=== PATIENT | female | born 1945 | race Caucasian/White ===

== ENCOUNTER 2016-08-14 12:26 | Emergency (ER) | payer OTHER ==
[2016-08-14 12:43] VITALS: BP 185/89
--- NOTE | 2016-08-14 13:33 | UC ---
kelsea Eden Timothy, scribed for Eleanor Jacome MD on 08/14/16 at 1313 . Dizzy HPI HPI Summary: Ms. Chanelle Nguyen is a 71 yo female presenting to [facility] with increased blood pressure and dizziness/nausea since this morning. Pt states she has a Hx of vertigo that she has been treating over the last 2 weeks. Pt states symptoms had improved. This morning she went to the gym and participated in her usual exercise regimen without difficulty. PT sates approx 10-1030 she had began to feel dizzy and nauseous. Pt states she felt like herBP was high - she measured it at BP of 185/105. Pt states she took all her medications for BP but her symptoms as well as her elevated BP continued. Pt states she has difficulty focusing, slight photophobia, and is unable to turn head to left as it increases her dizziness and nausea. Pt denies SOTO. PT states with ambulation feels like her balance is off - unsure if falling to left or right. Pt denies h /o similar symptoms. She states she has been compliant with her BP medication and has not missed any doses. In room she is lying down covering her eyes due to dizziness intensified by lights. She notes some issues with vertigo in the past 4 days but states this feels different and more intense. No cp, sob, abd pain. Her MHx includes Afib, HLD, HTN, vertigo, GERD. Pt medication list reviewed this visit. - History Of Current Complaint Chief Complaint: UCDizziness Stated Complaint: BP UP DIZZY Time Seen by Provider: 08/14/16 13:08 Hx Obtained From: Patient Onset/Duration: Sudden Onset, Lasting Hours, Still Present Timing: Constant Severity Initially: Moderate Severity Currently: Moderate Pain Intensity: 0 Character: Head Spinning, Room Spinning, Lightheaded, Dizzy Aggravating Factor(s): Position Change, Change In Head Position Alleviating Factor(s): Lying Down, Closing Eyes Associated Signs And Symptoms: Positive: Nausea. Negative: Diaphoresis, Chest Pain, Palpitations - Allergies/Home Medications Allergies/Adverse Reactions: Allergies Allergy/AdvReac Type Severity Reaction Status Date / Time Epinephrine Allergy Severe Palpitation Verified 08/25/13 11:19 s Diphenhydramine Allergy Difficulty Verified 08/25/13 11:19 [From Benadryl] Breathing Gadoteridol [From ProHance] Allergy Hives and Verified 08/25/13 11:19 itching Home Medications: Home Medications Apixaban* [Eliquis*] 5 mg PO 08/14/16 [History] Atenolol TAB* [Tenormin TAB* 25 MG] 25 mg PO DAILY 08/14/16 [History Confirmed 08/14/16] Flecainide TAB(NF) 50 mg PO 08/14/16 [History] Lisinopril [Lisinopril 2.5 MG-] 2.5 mg PO DAILY 08/14/16 [History Confirmed 05/28] PMH/Surg Hx/FS Hx/Imm Hx Previously Healthy: Yes Cardiovascular History: Hypertension, Atrial Fibrillation, Other Other Cardiovascular History: HLD GI/ History: Gastroesophageal Reflux - Surgical History Surgical History: Yes Surgery Procedure, Year, and Place: hysterectomy,Foreign object removed from throattonsilectomy - Family History Known Family History: Positive: Cardiac Disease, Hypertension, Other - [place] Negative: Diabetes - Social History Occupation: Retired Alcohol Use: None Substance Use Type: None Smoking Status (MU): Never Smoked Tobacco Review of Systems Constitutional: Negative Skin: Negative Eyes: Photophobia ENT: Negative Respiratory: Negative Cardiovascular: Other - High BP Gastrointestinal: Nausea Genitourinary: Negative Motor: Weakness Neurovascular: Negative Musculoskeletal: Negative Neurological: Weakness, Other - dizziness Psychological: Negative All Other Systems Reviewed And Are Negative: Yes Physical Exam Triage Information Reviewed: Yes Appearance: Well-Appearing, No Pain Distress - Pt appears uncomfortable, eyes close, Well-Nourished Vital Signs: Initial Vital Signs Temp 99.0 F 08/14/16 12:39 Pulse 57 08/14/16 12:39 Resp 18 08/14/16 12:39 BP 185/89 08/14/16 12:39 Pulse Ox 100 08/14/16 12:39 Vital Signs Reviewed: Yes Eye Exam: Normal Eyes: Positive: Other: - + photophobia - mild + left sided nystagmus ENT Exam: Normal ENT: Positive: Hearing grossly normal Dental Exam: Normal Neck exam: Normal Neck: Positive: Supple, Nontender Respiratory Exam: Normal Respiratory: Positive: Chest non-tender, Lungs clear Cardiovascular Exam: Normal Cardiovascular: Positive: RRR, No Murmur Musculoskeletal Exam: Normal Musculoskeletal: Positive: Strength Intact Neurological: Positive: Alert, Other: - left sided nystagmus Psychological Exam: Normal Skin Exam: Normal Diagnostics - EKG Cardiac Rate: Bradycardia - 1229: NSR @ 57 BPM, no acute ST-T wave changes. Dizzy Course/Dx - Course Course Of Treatment: Chanelle Nguyen is a 71 yo female presenting to [facility] with high blood pressure, dizziness, and nausea since 1000 this morning after going to the gym. Pt took her BP medications without improvement of BP or improvement of sx. advised pt to go to the to [facility] for further evaluation, observation, and treatment. She is agreeable to transfer to [facility] by ambulance. Saline lock. BG check - Differential Dx/Diagnosis Differential Diagnosis/HQI/PQRI: CVA Provider Diagnoses: hypertensive urgency, dizziness, nausea - Physician Notifications Discussed Patient Care With: Pooja Woodson - Discussed PT condition, accepts PT for transfer to [facility] Time Discussed With Above Provider: 13:19 Instructed by Provider To: Transfer Discharge - Discharge Plan Condition: Stable Disposition: TRANS [facility] Discharge Disposition Comment: transfer to [facility] for further evaluation, observation, and treatment Referrals: No Primary Care Phys,NOPCP [Primary Care Provider] - The documentation as recorded by the kelsea prado Timothy accurately reflects the service I personally performed and the decisions made by me, Eleanor Jacome MD.
== END 2016-08-14 13:45 | disposition short-term general hospital (02) ==
LOC: UCEAST 12:26
DX: I16.0 Hypertensive urgency (principal); I10 Essential (primary) hypertension; R42 Dizziness and giddiness; R11.0 Nausea
CPT/HCPCS: 93005; 99213; G0463

== ENCOUNTER 2016-08-14 13:57 | Emergency (ER) | payer OTHER ==
[2016-08-14 14:58] LABS: Hematocrit 41 % (35-47); Hemoglobin 13.5 g/dl (12.0-16.0); Mean Corpuscular HGB Conc 33 g/dl (31-36); Mean Corpuscular Hemoglobin 32 pg (27-31); Mean Corpuscular Volume 96 fL (80-97); Mean Platelet Volume 9 um3 (7.4-10.4); Red Blood Count 4.26 10^6/ul (4.0-5.4); Red Cell Distribution Width 14 % (10.5-15); White Blood Count 6.4 10^3/ul (3.5-10.8)
[2016-08-14 15:10] LABS: ALT 18 U/L (7-52); AST 19 U/L (13-39); Albumin 4.2 g/dL (3.2-5.2); Alkaline Phosphatase 77 U/L (34-104); Anion Gap 7 mmol/L (2-11); BUN/Creatinine Ratio 18.1 (8-20); Blood Urea Nitrogen 15 mg/dL (6-24); C Reactive Protein < 1.00 mg/L (< 5.00); CO2 Carbon Dioxide 26 mmol/L (22-32); Calcium 9.5 mg/dL (8.6-10.3); Chloride 107 mmol/L (101-111); Creatine Kinase 55 U/L (10-223); EGFR African American 86.9 (>60); EGFR Non-African American 67.6 (>60); Globulin 2.6 g/dL (2-4); Glucose 95 mg/dL (70-100); Lipase 102 U/L (11.0-82.0); Magnesium 2.3 mg/dL (1.9-2.7); Potassium 3.7 mmol/L (3.5-5.0); Sodium 140 mmol/L (133-145); Total Protein 6.8 g/dL (6.4-8.9)
[2016-08-14 15:15] LABS: Urine Bacteria Absent (Absent); Urine Bilirubin Negative (Negative); Urine Glucose Negative (Negative); Urine Nitrite Negative (Negative)
[2016-08-14 15:19] LABS: TSH (Thyroid Stimulating Horm) 2.39 mcIU/mL (0.34-5.60)
[2016-08-14 16:18] VITALS: BP 153/76
--- NOTE | 2016-08-14 17:45 | ED ---
Lorenzo Eden Rebecca, scribed for Josef Cruz MD on 08/14/16 at 1426 . Hypertension - HPI Summary HPI Summary: Pt is a 71 y/o F BIBA from [facility] who presents to ED c/o nausea and lightheadedness secondary to elevated BP. Sx began at 1000 this morning and have been constant since onset. Sx aggravated and alleviated by nothing, unchanged by typical blood pressure medication, administered at 1000 this morning. Denies abd pain, CP, SOB, SOTO, weakness, slurred speech, facial droop, visual changes. Pt reports checking her BP at home due to the onset of sx. Current sx are similar to prior episodes of HTN exacerbation, though her BP typically does not elevate as high as it currently is, peaking around 160 systolic. PMHx HTN and vertigo for the past month with dizziness characterized as room spinning. Current medications are: Lisinopril (2.5 mg), Atenolol (12.5 mg), Flecainide (50 mg BID), Eliquis (5 mg BID). Pt refuses CXR. - History of Current Complaint Chief Complaint: EDHypertension Stated Complaint: HIGH BLOOD PRESSURE,NAUSEA/FROM CC Time Seen by Provider: 08/14/16 14:17 Hx Obtained From: Patient Onset/Duration: Started Hours Ago, Still Present Timing: Constant Aggravating Factor(s): Nothing Alleviating Factor(s): Nothing Associated Signs & Symptoms: Other: - Nausea, lightheadedness Related Hx: Similar Episode - Prior episodes of elevated BP - Allergies/Home Medications Allergies/Adverse Reactions: Allergies Allergy/AdvReac Type Severity Reaction Status Date / Time Epinephrine Allergy Severe Palpitation Verified 08/25/13 11:19 s Diphenhydramine Allergy Difficulty Verified 08/25/13 11:19 [From Benadryl] Breathing Gadoteridol [From ProHance] Allergy Hives and Verified 08/25/13 11:19 itching PMH/Surg Hx/FS Hx/Imm Hx Endocrine/Hematology History: Denies: Hx Diabetes Cardiovascular History: Reports: Hx Hypercholesterolemia, Hx Hypertension Denies: Hx Pacemaker/ICD GI History: Reports: Other GI Disorders - see hx History: Denies: Hx Dialysis, Hx Renal Disease Sensory History: Denies: Hx Hearing Aid Neurological History: Reports: Other Neuro Impairments/Disorders - Hx vertigo Psychiatric History: Denies: Hx Panic Disorder - Cancer History Hx Chemotherapy: No Hx Radiation Therapy: No - Surgical History Surgery Procedure, Year, and Place: hysterectomy,Foreign object removed from throat, tonsilectomy Infectious Disease History: Denies: Hx Clostridium Difficile, Hx Hepatitis, Hx Human Immunodeficiency Virus (HIV), Hx Shingles, Hx Tuberculosis, Hx Known/Suspected VRE, Hx Known/ Suspected VRSA, History Other Infectious Disease, Traveled Outside the [place] in Last 30 Days - Family History Known Family History: Positive: Cardiac Disease, Hypertension, Other - CA Negative: Diabetes - Social History Alcohol Use: None Substance Use Type: Reports: None Hx Tobacco Use: No Smoking Status (MU): Never Smoked Tobacco Review of Systems Positive: Other - elevated BP Positive: Other - Denies visual changes Negative: Chest Pain Negative: Shortness Of Breath Positive: Nausea. Negative: Abdominal Pain Neurological: Other - Lightheadedness; Denies facial droop Negative: Headache, Weakness, Slurred Speech All Other Systems Reviewed And Are Negative: Yes Physical Exam - Summary Physical Exam Summary: General: well-appearing, no pain distress Skin: warm, skin color reflects adequate perfusion, dry Head: normal Eyes: EOMI, ERICA ENT: normal Neck: supple, nontender Respiratory: CTA, breath sounds present Cardiovascular: RRR Abdomen: soft, nontender Bowel: present Musculoskeletal: normal, strength/ROM intact Neuro: normal, sensory/motor intact, A&O x3 Psych: affect/mood appropriate Triage Information Reviewed: Yes Vital Signs On Initial Exam: Initial Vitals Temp Pulse Resp BP Pulse Ox 98.6 F 55 17 186/102 100 08/14/16 14:16 08/14/16 14:16 08/14/16 14:16 08/14/16 14:16 08/14/16 14:16 Vital Signs Reviewed: Yes Diagnostics - Vital Signs Vital Signs Temp Pulse Resp BP Pulse Ox 08/14/16 16:18 99.4 F 49 15 153/76 08/14/16 16:00 48 14 153/76 97 08/14/16 15:30 51 12 152/83 99 08/14/16 15:00 53 11 162/81 99 08/14/16 14:30 57 13 179/96 100 08/14/16 14:25 56 17 192/83 100 08/14/16 14:20 55 100 08/14/16 14:18 186/102 08/14/16 14:16 98.6 F 55 17 186/102 100 - Laboratory Lab Results: Lab Results 08/14/16 08/14/16 08/14/16 Range/Units 13:28 13:28 13:28 WBC 6.4 (3.5-10.8) 10^3/ul RBC 4.26 (4.0-5.4) 10^6/ul Hgb 13.5 (12.0-16.0) g/dl Hct 41 (35-47) % MCV 96 (80-97) fL MCH 32 H (27-31) pg MCHC 33 (31-36) g/dl RDW 14 (10.5-15) % Plt Count 195 (150-450) 10^3/ul MPV 9 (7.4-10.4) um3 Neut % (Auto) 70.3 (38-83) % Lymph % (Auto) 22.1 L (25-47) % [place] % (Auto) 5.4 (1-9) % Eos % (Auto) 1.7 (0-6) % Baso % (Auto) 0.5 (0-2) % Absolute Neuts (auto) 4.5 (1.5-7.7) 10^3/ul Absolute Lymphs (auto) 1.4 (1.0-4.8) 10^3/ul Absolute Monos (auto) 0.3 (0-0.8) 10^3/ul Absolute Eos (auto) 0.1 (0-0.6) 10^3/ul Absolute Basos (auto) 0 (0-0.2) 10^3/ul Absolute Nucleated RBC 0.01 10^3/ul Nucleated RBC % 0.1 INR (Anticoag Therapy) 1.34 H (0.89-1.11) APTT 34.7 (26.0-36.3) seconds Sodium 140 (133-145) mmol/L Potassium 3.7 (3.5-5.0) mmol/L Chloride 107 (101-111) mmol/L Carbon Dioxide 26 (22-32) mmol/L Anion Gap 7 (2-11) mmol/L BUN 15 (6-24) mg/dL Creatinine 0.83 (0.51-0.95) mg/dL Est GFR ( Amer) 86.9 (>60) Est GFR (Non-Af Amer) 67.6 (>60) BUN/Creatinine Ratio 18.1 (8-20) Glucose 95 (70-100) mg/dL Calcium 9.5 (8.6-10.3) mg/dL Magnesium 2.3 (1.9-2.7) mg/dL Total Bilirubin 0.70 (0.2-1.0) mg/dL AST 19 (13-39) U/L ALT 18 (7-52) U/L Alkaline Phosphatase 77 (34-104) U/L Total Creatine Kinase 55 (10-223) U/L CK-MB (CK-2) 2.3 (0.6-6.3) ng/mL Troponin I 0.00 (<0.04) ng/mL C-Reactive Protein < 1.00 (< 5.00) mg/L B-Natriuretic Peptide ( - 100) pg/mL Total Protein 6.8 (6.4-8.9) g/dL Albumin 4.2 (3.2-5.2) g/dL Globulin 2.6 (2-4) g/dL Albumin/Globulin Ratio 1.6 (1-3) Lipase 102 H (11.0-82.0) U/L TSH 2.39 (0.34-5.60) mcIU/mL Urine Color Urine Appearance Urine pH (5-9) Ur Specific Basin (1.010-1.030) Urine Protein (Negative) Urine Ketones (Negative) Urine Blood (Negative) Urine Nitrate (Negative) Urine Bilirubin (Negative) Urine Urobilinogen (Negative) Ur Leukocyte Esterase (Negative) Urine WBC (Auto) (Absent) Urine RBC (Auto) (Absent) Ur Squamous Epith Cells (Absent) Urine Bacteria (Absent) Urine Glucose (Negative) 08/14/16 08/14/16 Range/Units 13:28 14:51 WBC (3.5-10.8) 10^3/ul RBC (4.0-5.4) 10^6/ul Hgb (12.0-16.0) g/dl Hct (35-47) % MCV (80-97) fL MCH (27-31) pg MCHC (31-36) g/dl RDW (10.5-15) % Plt Count (150-450) 10^3/ul MPV (7.4-10.4) um3 Neut % (Auto) (38-83) % Lymph % (Auto) (25-47) % V[place] % (Auto) (1-9) % Eos % (Auto) (0-6) % Baso % (Auto) (0-2) % Absolute Neuts (auto) (1.5-7.7) 10^3/ul Absolute Lymphs (auto) (1.0-4.8) 10^3/ul Absolute Monos (auto) (0-0.8) 10^3/ul Absolute Eos (auto) (0-0.6) 10^3/ul Absolute Basos (auto) (0-0.2) 10^3/ul Absolute Nucleated RBC 10^3/ul Nucleated RBC % INR (Anticoag Therapy) (0.89-1.11) APTT (26.0-36.3) seconds Sodium (133-145) mmol/L Potassium (3.5-5.0) mmol/L Chloride (101-111) mmol/L Carbon Dioxide (22-32) mmol/L Anion Gap (2-11) mmol/L BUN (6-24) mg/dL Creatinine (0.51-0.95) mg/dL Est GFR ( Amer) (>60) Est GFR (Non-Af Amer) (>60) BUN/Creatinine Ratio (8-20) Glucose (70-100) mg/dL Calcium (8.6-10.3) mg/dL Magnesium (1.9-2.7) mg/dL Total Bilirubin (0.2-1.0) mg/dL AST (13-39) U/L ALT (7-52) U/L Alkaline Phosphatase (34-104) U/L Total Creatine Kinase (10-223) U/L CK-MB (CK-2) (0.6-6.3) ng/mL Troponin I (<0.04) ng/mL C-Reactive Protein (< 5.00) mg/L B-Natriuretic Peptide 106 H ( - 100) pg/mL Total Protein (6.4-8.9) g/dL Albumin (3.2-5.2) g/dL Globulin (2-4) g/dL Albumin/Globulin Ratio (1-3) Lipase (11.0-82.0) U/L TSH (0.34-5.60) mcIU/mL Urine Color Colorless Urine Appearance Clear Urine pH 8.0 (5-9) Ur Specific Basin 1.005 L (1.010-1.030) Urine Protein Negative (Negative) Urine Ketones Negative (Negative) Urine Blood 1+ H (Negative) Urine Nitrate Negative (Negative) Urine Bilirubin Negative (Negative) Urine Urobilinogen Negative (Negative) Ur Leukocyte Esterase Negative (Negative) Urine WBC (Auto) Absent (Absent) Urine RBC (Auto) 1+(3-5/hpf) H (Absent) Ur Squamous Epith Cells Present H (Absent) Urine Bacteria Absent (Absent) Urine Glucose Negative (Negative) Result Diagrams: 08/14/16 13:28 08/14/16 13:28 Lab Statement: Any lab studies that have been ordered have been reviewed, and results considered in the medical decision making process. - EKG 1536 Cardiac Rate: Bradycardia - 48 bpm EKG Rhythm: Sinus Bradycardia ST Segment: Normal Ectopy: None Re-Evaluation - Re-Evaluation First Eval Re-Evaluation Time: 16:04 Change: Unchanged Comment: Discussed lab and EKG results with pt. BP has gone down and she is feeling better. Hypertension Course/Dx - Course Course Of Treatment: NO CRITICAL CARE TIME. WELL IN ED. BP NORMALIZED IN ED. RESULTS DISCUSSED WITH PATIENT/FAMILY. DISCHARGE HOME STABLE. - Diagnoses Provider Diagnoses: Hypertension Discharge - Discharge Plan Condition: Stable Disposition: HOME Patient Education Materials: Hypertension (ED) Referrals: Chava Linton MD [Primary Care Provider] - Additional Instructions: FOLLOW UP WITH YOUR DOCTOR. RETURN TO THE EMERGENCY DEPARTMENT FOR ANY WORSENING OF YOUR CONDITION OR QUESTIONS OR CONCERNS. The documentation as recorded by the Lorenzo prado Rebecca accurately reflects the service I personally performed and the decisions made by me, Josef Cruz MD.
== END 2016-08-14 16:19 | disposition home or self-care (01) ==
LOC: ED 13:57
DX: I10 Essential (primary) hypertension (principal); R11.0 Nausea; R42 Dizziness and giddiness
CPT/HCPCS: 36415; 80053; 81003; 81015; 82550; 82553; 83690; 83735; 83880; 84443; 84484; 85025; 85610; 85730; 86140; 93005; 99283

== ENCOUNTER 2017-08-15 16:38 | Emergency (ER) | payer OTHER ==
[2017-08-15 16:54] VITALS: BP 151/83
--- NOTE | 2017-08-15 17:16 | UC ---
Lorenzo Eden Rebecca, scribed for Eleanor Jacome MD on 08/15/17 at 1711 . Skin Complaint HPI - HPI Summary HPI Summary: Pt is a 72 y/o F who presents to [facility] due to a suspected tick bite. 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 When her looked at it, he suspected there may be a tick present. 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 pt without any complaints. 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 ARTIST, Still Present Current Severity: None Pain Intensity: 0 Pain Scale Used: 0-10 Numeric Location: Other - Back Character: Pruritus Aggravating Factor(s): Nothing Alleviating Factor(s): Nothing Associated Signs & Symptoms: Positive: Negative - Allergy/Home Medications Allergies/Adverse Reactions: Allergies Allergy/AdvReac Type Severity Reaction Status Date / Time diphenhydramine Allergy Difficulty Verified 08/15/17 17:07 Breathing epinephrine Allergy Palpitation Verified 08/15/17 17:07 s gadoteridol Allergy Difficulty Verified 08/15/17 17:07 Breathing Review of Systems Constitutional: Negative Skin: Other - Suspcted tick - pruritic region on the back Eyes: Negative ENT: Negative Respiratory: Negative Cardiovascular: Negative Gastrointestinal: Negative Genitourinary: Negative Motor: Negative Neurovascular: Negative Musculoskeletal: Negative Neurological: Negative Psychological: Negative All Other Systems Reviewed And Are Negative: Yes PMH/Surg Hx/FS Hx/Imm Hx - Additional Past Medical History Additional PMH: NEGATIVE PMHx: DM Previously Healthy: Yes Cardiovascular History: Hypertension, Atrial Fibrillation GI/ History: Gastroesophageal Reflux - Surgical History Surgical History: Yes Surgery Procedure, Year, and Place: hysterectomy,Foreign object removed from throat, tonsilectomy - Family History Known Family History: Positive: Cardiac Disease, Hypertension, Other - [place] Negative: Diabetes - Social History Lives: With Family Alcohol Use: None Substance Use Type: None Smoking Status (MU): Never Smoked Tobacco Physical Exam - Summary Physical Exam Summary: Vital Signs Reviewed: Yes A+Ox3, no distress Eyes: Conjunctiva Clear ENT: Hearing grossly normal neck: supple Respiratory: Positive: No respiratory distress, No accessory muscle use Cardiovascular: skin color reflect adequate perfusion Musculoskeletal Exam: TAVAREZ x 4 without difficulty Neurological: Positive: Alert, ambulatory without difficulty Psychological: Positive: Normal Response To Family Skin: Positive: left scapular area - pt with small skin tag - recently scratched with scab. No tick noted. gentle cleaning - scab removed. scant bleeding. covered with gauze Triage Information Reviewed: Yes Vital Signs: Initial Vital Signs Temp 99.5 F 08/15/17 16:49 Pulse 50 08/15/17 16:49 Resp 16 08/15/17 16:49 BP 151/83 08/15/17 16:49 Pulse Ox 100 08/15/17 16:49 Course/Dx - Course Course Of Treatment: Pt medications reviewed this visit. Allergies noted. Patient presented to have a lesion on her left upper back check for tic. Patient has a small skin tag with a scab. Cleansed with water. Scab removed. The patient was scant bleeding. No tick noted. Give patient given a tick remover. Demonstrated its use. Encourage return. Patient comfortable with plan. - Diagnoses Provider Diagnoses: scabbed abraison Discharge - Sign-Out/Discharge Documenting (check all that apply): Discharge/Admit/Transfer - Discharge - Discharge Plan Condition: Stable Disposition: HOME Patient Education Materials: Abrasion (ED) Referrals: Chava Linton MD [Primary Care Provider] - Additional Instructions: The doctor that evaluated you today found a scab of a skin-tag lesions on your back. There was no tick noted. You had a small amount of bleeding when the scab was removed Okay to cover wound with antibiotic ointment (neosporin, polysporin) and bandage Contact your doctor or return with questions or concerns - Billing Disposition and Condition Condition: STABLE Disposition: Home The documentation as recorded by the Lorenzo prado Rebecca accurately reflects the service I personally performed and the decisions made by , Eleanor Jacome MD.
== END 2017-08-15 17:20 | disposition home or self-care (01) ==
LOC: UCEAST 16:38
DX: S20.412A Abrasion of left back wall of thorax, initial encounter (principal); W57.XXXA Bitten or stung by nonvenomous insect and other nonvenomous arthropods, initial encounter; Y93.9 Activity, unspecified; Y92.9 Unspecified place or not applicable; I10 Essential (primary) hypertension; I48.91 Unspecified atrial fibrillation; K21.9 Gastro-esophageal reflux disease without esophagitis; Z88.8 Allergy status to other drugs, medicaments and biological substances; Z82.49 Family history of ischemic heart disease and other diseases of the circulatory system; Z80.9 Family history of malignant neoplasm, unspecified
CPT/HCPCS: 99211; G0463

== ENCOUNTER 2017-12-01 03:47 | Observation (INO) | payer OTHER ==
[2017-12-01 04:46] LABS: ABS Basophils 0 10^3/ul (0-0.2); ABS Eosinophils 0.1 10^3/ul (0-0.6); ABS Lymphocytes 1.5 10^3/ul (1.0-4.8); ABS Monocytes 0.4 10^3/ul (0-0.8); ABS Nucleated RBC 0 10^3/ul; Eosinophil % 1.8 % (0-6); Hematocrit 37 % (35-47); Hemoglobin 12.9 g/dl (12.0-16.0); Lymphocyte % 30.8 % (25-47); Mean Corpuscular HGB Conc 35 g/dl (31-36); Mean Corpuscular Hemoglobin 33 pg (27-31); Mean Corpuscular Volume 94 fL (80-97); Mean Platelet Volume 7.6 um3 (7.4-10.4); Nucleated Red Blood Cells % 0; Platelet Count 192 10^3/ul (150-450); Red Blood Count 3.96 10^6/ul (4.00-5.40); Red Cell Distribution Width 14 % (10.5-15)
--- NOTE | 2017-12-01 04:49 | ED ---
HPI Chest Pain - HPI Summary HPI Summary: 71 year old F presenting to [facility] with a chief complaint of chest burning that began on her right side that has moved to her left side since 0300 today. The patient rates the pain 3/10 in severity. Symptoms aggravated by nothing. Symptoms alleviated by nothing. She reports chest pressure that has since resolved. Patient denies nausea and shortness of breath. She has hx GERD but does not take medication. Patient additionally complains of HTN for four days ago. She took 2.5 mg Lisinopril x4 yesterday. She states that BP 150/80 is good for her. - History of Current Complaint Chief Complaint: EDChestWallPain Time Seen by Provider: 12/01/17 04:12 Hx Obtained From: Patient Onset/Duration: Started Hours Ago - 03:00 today, Still Present Timing: Constant Current Severity: Mild Pain Intensity: 3 Pain Scale Used: 0-10 Numeric Character: Burning Aggravating Factor(s): Nothing Alleviating Factor(s): Nothing Associated Signs and Symptoms: Positive: Other: - chest pressure that has since resolved, HTN for four days. Negative: Shortness of Breath, Nausea - Allergy/Home Medications Allergies/Adverse Reactions: Allergies Allergy/AdvReac Type Severity Reaction Status Date / Time diphenhydramine Allergy Intermediate Difficulty Verified 12/01/17 03:52 Breathing epinephrine Allergy Intermediate Palpitation Verified 12/01/17 03:52 s gadoteridol Allergy Mild Itching Verified 12/01/17 03:52 iohexol [From Omnipaque] Allergy Rash And Verified 12/01/17 03:52 Itching PMH/Surg Hx/FS Hx/Imm Hx Previously Healthy: No Endocrine/Hematology History: Denies: Hx Diabetes Cardiovascular History: Reports: Hx Hypercholesterolemia, Hx Hypertension Denies: Hx Congestive Heart Failure, Hx Myocardial Infarction, Hx Pacemaker/ ICD GI History: Reports: Hx Gastroesophageal Reflux Disease History: Denies: Hx Dialysis, Hx Renal Disease Sensory History: Denies: Hx Hearing Aid Neurological History: Reports: Other Neuro Impairments/Disorders - Hx vertigo Psychiatric History: Denies: Hx Panic Disorder - Cancer History Hx Chemotherapy: No Hx Radiation Therapy: No - Surgical History Surgery Procedure, Year, and Place: hysterectomy,Foreign object removed from throat, tonsilectomy Infectious Disease History: No Infectious Disease History: Denies: Hx Clostridium Difficile, Hx Hepatitis, Hx Human Immunodeficiency Virus (HIV), Hx Shingles, Hx Tuberculosis, Hx Known/Suspected VRE, Hx Known/ Suspected VRSA, History Other Infectious Disease, Traveled Outside the [place] in Last 30 Days - Family History Known Family History: Positive: Cardiac Disease, Hypertension, Other - CA Negative: Diabetes - Social History Alcohol Use: None Hx Substance Use: No Substance Use Type: Reports: None Hx Tobacco Use: No Smoking Status (MU): Never Smoked Tobacco Review of Systems Positive: Other - chest burning, chest pressure that has since resolved, HTN Negative: Shortness Of Breath Negative: Nausea All Other Systems Reviewed And Are Negative: Yes Physical Exam - Summary Physical Exam Summary: GENERAL: Patient is a well-developed and nourished F who is lying comfortable in the stretcher. Patient is not in any acute respiratory distress. HEAD AND FACE: Normocephalic EYES: PERRLA, EOMI x 2. EARS: Hearing grossly intact. MOUTH: Oropharynx within normal limits. NECK: Supple, trachea is midline, no adenopathy, no JVD, no carotid bruit. CHEST: Symmetric, no tenderness at palpation LUNGS: Clear to auscultation bilaterally. No wheezing or crackles. CVS: Regular rate and rhythm, S1 and S2 present, no murmurs or gallops appreciated. ABDOMEN: Soft, non-tender. Bowel sounds are normal. No abdominal abnormal pulsations. EXTREMITIES: Full ROM in all major joints, no edema, no cyanosis or clubbing. NEURO: Alert and oriented x 3. No acute neurological deficits. Speech is normal and follows commands. SKIN: Dry and warm Triage Information Reviewed: Yes Vital Signs On Initial Exam: Initial Vitals Temp Pulse Resp BP Pulse Ox 98.6 F 70 16 193/82 99 12/01/17 03:50 12/01/17 03:50 12/01/17 03:50 12/01/17 03:50 12/01/17 03:50 Vital Signs Reviewed: Yes Diagnostics - Vital Signs Vital Signs Temp Pulse Resp BP Pulse Ox 12/01/17 04:35 56 183/86 100 12/01/17 03:50 98.6 F 70 16 193/82 99 - Laboratory Result Diagrams: 12/01/17 04:32 12/01/17 14:55 Lab Statement: Any lab studies that have been ordered have been reviewed, and results considered in the medical decision making process. - Radiology CXR Radiology Interpretation Completed By: ED Physician - Rachel. Pending official report. - EKG 0356 Cardiac Rate: NL - 67 BPM EKG Rhythm: Sinus Rhythm EKG Interpretation: Left axis deviation. Q waves seen in inferior leads Re-Evaluation - Re-Evaluation First Eval Re-Evaluation Time: 06:14 Change: Improved Comment: patient feels better with the GI cocktail Second Eval Re-Evaluation Time: 06:41 Change: Worse Comment: Patient's burning symptoms are back, but worse than before and is radiation to her back. Chest Pain Course/Dx - Course Course Of Treatment: 71 year old F presenting to [facility] with a chief complaint of chest burning that began on her right side that has moved to her left side since 0 today. Workup is unremarkable including first troponin and D-dimer. She was given GI cocktail, which helped burning symptoms a lot. CXR was clear. Upon re-evaluation, patient reports that her burning symptoms have returned and are now worse and radiating to her back, so the patient will be admitted. Case discussed with hospitalist, Dr. Ingram, who says to speak with patient's PCP. Dr. Mcknight called back for Dr. Linton and agrees to come see patient. I discussed results with patient. The patient agrees with this plan. - Diagnoses Provider Diagnoses: Chest pain - Provider Notifications Discussed Care Of Patient With: Devan Ingram Time Discussed With Above Provider: 06:50 Instructed by Provider To: Other - Dr. Ingram, hospitalist, says to call patient 's PCP, Dr. Linton. Dr. Mcknight called back for Dr. Linton at 06:58 and agrees to admit patient. Discharge - Sign-Out/Discharge Documenting (check all that apply): Patient Departure - Admit - Discharge Plan Condition: Fair Disposition: ADMITTED TO [facility] - Billing Disposition and Condition Condition: FAIR Disposition: Admitted to [facility] - Attestation Statements Document Initiated by Scribe: Yes Documenting Scribe: Maribel Marvin Provider For Whom Scribe is Documenting (Include Credential): Hetal Malhotra MD Scribe Attestation: Maribel Eden, scribed for Hetal Malhotra MD on 12/02/17 at 0325. Scribe Documentation Reviewed: Yes Provider Attestation: The documentation as recorded by the scribeMaribel accurately reflects the service I personally performed and the decisions made by me, Hetal Malhotra MD
[2017-12-01] MEDS ORDERED: amLODIPine TAB* 5 MG PO ONE (04:52)
[2017-12-01] MEDS ORDERED: Al Hydrox/Mg Hydrox/Simet LIQ* 30 ML UDC PO ONE (04:52)
[2017-12-01] MEDS ORDERED: Lidocaine 2% VISCOUS* 15 ML UDC PO ONE (04:52)
[2017-12-01 04:55] LABS: INR 1.33 (0.77-1.02)
[2017-12-01 05:31] LABS: Urine Appearance Clear; Urine Blood 1+ (Negative); Urine Color Straw; Urine Ketones Negative (Negative); Urine Protein Negative (Negative); Urine Red Blood Cell Trace(0-2/hpf) (Absent); Urine Specific Gravity 1.004 (1.010-1.030); Urine Urobilinogen Negative (Negative); Urine White Blood Cell Absent (Absent)
[2017-12-01] MEDS ORDERED: Aspirin 81 mg CHEW TAB* 81 MG TAB.CHEW PO ONE (06:41)
[2017-12-01] MEDS ORDERED: Nitroglycerin TAB 0.4 MG* 0.4 MG TAB SL ONE (06:49)
[2017-12-01] MEDS ORDERED: Ondansetron INJ* 2 MG/ML VIAL ONE (07:22)
[2017-12-01] MEDS: Ondansetron INJ* 2 MG/ML VIAL IV ONE ×2 (07:25→07:26)
--- NOTE | 2017-12-01 07:56 | RAD ---
HISTORY: cough COMPARISONS: May 29, 2012 VIEWS: 1: frontal AP view of the chest at 4:45 AM FINDINGS: LINES AND TUBES: None. CARDIOMEDIASTINAL SILHOUETTE: The cardiomediastinal silhouette is normal for portable technique. PLEURA: The costophrenic angles are sharp. No pleural abnormalities are noted. LUNG PARENCHYMA: The lungs are clear. ABDOMEN: The upper abdomen is clear. There is no subphrenic gas. BONES AND SOFT TISSUES: No bone or soft tissue abnormalities are noted. IMPRESSION: NO ACTIVE CARDIOPULMONARY DISEASE. R0
[2017-12-01] MEDS ORDERED: Nitroglycerin TAB 0.4 MG* 0.4 MG TAB SL PRN (09:47)
[2017-12-01] MEDS ORDERED: Acetaminophen TAB* 325 MG PO PRN (09:54)
[2017-12-01] MEDS: Lisinopril TAB* 5 MG PO SCH (11:02)
[2017-12-01] MEDS: Apixaban* 5 MG TAB PO SCH ×2 (11:02→20:32)
[2017-12-01] MEDS: Atenolol TAB* 25 MG PO SCH (11:02)
--- NOTE | 2017-12-01 11:22 | HP ---
HISTORY AND PHYSICAL: ADDENDUM: PHYSICAL EXAMINATION GENERAL: She is a slender white female in no acute distress. VITAL SIGNS: Blood pressure 161/88, pulse 65, respirations 65, O2 sat 99% on room air. HEENT: Atraumatic, normocephalic. Full EOMs. Mouth: Pharynx unremarkable. NECK: Supple. No thyromegaly or bruits. NODES: No adenopathy. CHEST: Clear. HEART: Normal S1, S2. There are no murmurs, gallops, or rubs. Pulses are full throughout. ABDOMEN: Soft, nontender. There are no masses or organomegaly. Bowel sounds are active. EXTREMITIES: Without cyanosis, clubbing or edema. She has bunions. NEUROLOGIC: Without gross focal or lateralizing signs. SKIN: Warm and dry. LABORATORY DATA: CBC: WBC 5.0, H and H 12.9/37, MCV 94, PLT 192,000. INR 1.23, PTT 33.6. D-dimer less than 200. Chemistry: Sodium 138, potassium 3.4, chloride 105, CO2 of 26, BUN/creatinine 12/0.88, glucose 101, lactic acid 1.1. Rest of her comprehensive metabolic panel was within normal limits. Troponins were 0.00, repeat 0.01. BNP normal at 58. Urinalysis: Straw clear, specific gravity of 1.004, pH 7. Dipstick is positive for blood 1+, wbc's absent, rbc's trace, squamous epithelial cells present, bacteria absent, glucose negative. DIAGNOSTIC STUDIES: Chest x-ray within normal limits. EKG shows possible old inferior NE. IMPRESSION: The patient with chest pain and uncontrolled hypertension. Chest pressure seems to relate to the elevated blood pressure. I doubt she is having symptoms related to coronary artery disease. She has received amlodipine. I will continue this. I will increase the dose of her lisinopril. I am going to order an echocardiogram. If she rules out for a myocardial infarction, she will have a stress test tomorrow. She admits to being anxious due to the recent of her friend of a heart attack, which was unexpected. She is a full code. DVT prophylaxis is with Eliquis. [id number]/[facility] #: [id number] [facility]
[2017-12-01] MEDS: Flecainide TAB* 100 MG PO SCH ×2 (11:37→20:32)
--- NOTE | 2017-12-01 11:38 | HP ---
CONTINUATION ADDENDUM NOW INCLUDED ON THIS REPORT CC: Chava Linton MD; Kimberly Garcia MD * HISTORY AND PHYSICAL: DATE OF ADMISSION: 12/01/17 HISTORY: Chanelle Nguyen is a 72-year-old woman admitted with chest pain. The patient was in her usual state of health until about a week ago. She was quite constipated, which is a lifelong problem for her. She took a third of a bottle of Colyte at the suggestion of her auto crane driver and this worked but ever since then, her blood pressure has been elevated. She does check her blood pressure twice a day, which is a habit for her. Usually it runs 130/80 in the mornings and 150 systolic in the evenings. Recently, it has been running higher. Two days ago, it was 210/110 in the evening. She ended up taking extra 5 mg of lisinopril and yesterday, her blood pressure was still high , 195/105 at 6 p.m. She took additional 5 mg of lisinopril (normally takes 2.5 mg daily). Before bed, her blood pressure was still 180 systolic. She awoke at 3 a.m. with blood pressure 190/100 and discomfort around the side of her chest, which she described as burning. It subsequently went over to the left side. That is now gone and she has a backache in the mid back below the scapular level. She rates this as a 3/10. She is not sure if she has had this before. She feels slightly nauseated. She did get nitroglycerin in the emergency room. This seemed to help with the pain. When she first came into the emergency room, her blood pressure was 193/82, has ranged from 133/74 to 183 /96 since then. Medications she received in the emergency room have been GI cocktail which afforded some relief, aspirin 81 mg and nitroglycerin 0.4 mg sublingual. She also received 5 mg of amlodipine. Right now, she denies chest pain. She has had no associated symptoms other than mild nausea. She has not vomited. She has had no diaphoresis. She has had no radiation of the pain other than the locations mentioned above. PAST MEDICAL HISTORY: Significant for the following medical problems: 1. Hypertension. 2. Atrial fibrillation. 3. Interstitial cystitis possible, being referred to urology. 4. History of Hernandez's esophagus. PAST SURGICAL HISTORY: 1. Hysterectomy, unilateral oophorectomy for fibroid tumor. 2. Fish bone removed from the throat. ALLERGIES: To EPINEPHRINE, CONTRAST DYE caused itching. These are the ones that she mentioned to me. The ones listed on her hospital record are DIPHENHYDRAMINE, EPINEPHRINE, GADOTERIDOL, and OMNIPAQUE (IOHEXOL). MEDICATIONS AT HOME: 1. Flecainide 50 mg twice a day. 2. Lisinopril 2.5 mg daily (see above). 3. Atenolol 12.5 mg daily. 4. Eliquis 5 mg b.i.d. 5. P.r.n. Tylenol. FAMILY HISTORY: Father at age 64 of acute myocardial infarction. He was a heavy smoker 3 to 4 packs a day. Mother around 70 years old. She had colon cancer. She also had heart attacks after a ruptured colon related to the colon cancer. Her cause of ; however, was cancer. She has a 76-year-old sister with a tremor. She has 2 children in good health. SOCIAL AND PERSONAL HISTORY: The patient is . She lives in her own home. 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 REVIEW OF SYSTEMS: Generally, she feels well. Her appetite is good. Her weight is steady. She denies fevers, chills and sweats. She generally sleeps well except has to get up 2 or 3 times due to her bladder. She exercises regularly, walks on the treadmill for one half to 1 hour with a 2.5% to 3% grade at 3 miles an hour. She usually hamilton off 200 calories. Skin: Negative. HEENT: Negative. Nodes: Negative. Heme: Negative. Breasts: Negative. Endocrine: Negative. Respiratory: Negative. Cardiovascular: See above. She has been evaluated for atrial fibrillation. She lives in [place]. They could not do the ablation because of her esophagus and her heart were too close together. Stress test at that time, which was 4 to 5 years ago was normal. GI : She has lifelong constipation. She was diagnosed with GERD and told she had a "slight Hernandez's." She is due to have an EGD in the next couple of months. She gets upper abdominal gas pressure. : See above. She has bladder pressure , nocturia. She has some "rawness" in her perineum. [employer]SEM[employer]ER: See above. Musculoskeletal: Negative. Neuro: She gets a headache every 10 days on the right side of her head for the past 2 to 3 years for which she takes Tylenol. PSYCHIATRIC: She admits to being a very anxious person. CONTINUATION ADDENDUM: PHYSICAL EXAMINATION GENERAL: She is a slender white female in no acute distress. VITAL SIGNS: Blood pressure 161/88, pulse 65, respirations 65, O2 sat 99% on room air. SKIN: Warm and dry. HEENT: Atraumatic, normocephalic. Full EOMs. Mouth: Pharynx unremarkable. NECK: Supple. No thyromegaly or bruits. NODES: No adenopathy. CHEST: Clear. HEART: Normal S1, S2. There are no murmurs, gallops, or rubs. Pulses are full throughout. ABDOMEN: Soft, nontender. There are no masses or organomegaly. Bowel sounds are active. EXTREMITIES: Without cyanosis, clubbing or edema. She has bunions. NEUROLOGIC: Without gross focal or lateralizing signs. LABORATORY DATA: CBC: WBC 5.0, H and H 12.9/37, MCV 94, PLT 192,000. INR 1.23, PTT 33.6. D-dimer less than 200. Chemistry: Sodium 138, potassium 3.4, chloride 105, CO2 of 26, BUN/creatinine 12/0.88, glucose 101, lactic acid 1.1. Rest of her comprehensive metabolic panel was within normal limits. Troponins were 0.00, repeat 0.01. BNP normal at 58. Urinalysis: Straw clear, specific gravity of 1.004, pH 7. Dipstick is positive for blood 1+, wbc's absent, rbc's trace, squamous epithelial cells present, bacteria absent, glucose negative. DIAGNOSTIC STUDIES: Chest x-ray within normal limits. EKG shows possible old inferior HI. IMPRESSION: The patient with chest pain and uncontrolled hypertension. Chest pressure seems to relate to the elevated blood pressure. I doubt she is having symptoms related to coronary artery disease. She has received amlodipine. I will continue this. I will increase the dose of her lisinopril. I am going to order an echocardiogram. If she rules out for a myocardial infarction, she will have a stress test tomorrow. She admits to being anxious due to the recent of her friend of a heart attack, which was unexpected. She is a full code. DVT prophylaxis is with Eliquis. [id number]/[facility] #: [id number]/[facility] #: [id number] MTDD
[2017-12-02] MEDS ORDERED: amLODIPine TAB* 5 MG PO SCH (09:00)
--- NOTE | 2017-12-02 11:41 | ECHO ---
Patient: KI LEONARD [facility] Rec#: [id number] : 1945 Date: 12/02/2017 Age: 72y Height: 160 cm / 63.0 in Weight: 52.6 kg / 115.9 lbs Sex: F BSA: 1.5 Room#: [facility] Admit Date#: 12/01/2017 Type: Inpatient Referring: Zonia Mcknight MD Reading: Nikolay Olea MD Building Attendant: Andreina Lagos RN RDCS CC: Chava Linton MD Transthoracic Echocardiogram Indication: Chest pain BP: 106/62 HR: 54 Rhythm: Bradycardia Findings History: HTN, A. fib, Hernandez's esophagus, interstitial cystitis Technical Comments: The study quality is fair. Left Ventricle: The left ventricular chamber size is normal. There is increased basal septal hypertrophy noted without evidence of an increased gradient across the left ventricular outflow tract. Septal knuckle measures 1.2 cm. Global left ventricular wall motion and contractility are within normal limits. There is normal left ventricular systolic function. The estimated ejection fraction is 60-65%. There is an E to A reversal in the mitral valve flow pattern suggestive of diastolic dysfunction. Left Atrium: The left atrial chamber size is normal. Right Ventricle: The right ventricular chamber size and systolic function are within normal limits. Right Atrium: The right atrial cavity size is normal. Aortic Valve: The aortic valve structure is not well visualized. The aortic valve leaflets are mildly thickened. There is a trace of aortic regurgitation. There is no evidence of aortic stenosis. Mitral Valve: The mitral valve leaflets are mildly thickened. There is mild mitral regurgitation. There is no evidence of mitral stenosis. Tricuspid Valve: The tricuspid valve leaflets are normal. There is trace tricuspid regurgitation. Unable to estimate the right ventricular systolic pressure. There is no tricuspid stenosis. Pulmonic Valve: The pulmonic valve structure is not well visualized. Pericardium: There is no significant pericardial effusion. Aorta: The ascending aorta is not well visualized. There is no dilatation of the aortic arch. There is no dilation of the aortic root. Pulmonary Artery: The main pulmonary artery is not well visualized. Venous: The inferior vena cava appears normal in size. There is a greater than 50% respiratory change in the inferior vena cava dimension. Summary: There was not any prior study for comparison. Conclusions There is increased basal septal hypertrophy noted without evidence of an increased gradient across the left ventricular outflow tract. Septal knuckle measures 1.2 cm. Global left ventricular wall motion and contractility are within normal limits. The estimated ejection fraction is 60-65%. The right ventricular chamber size and systolic function are within normal limits. There is a trace of aortic regurgitation. There is mild mitral regurgitation. There is trace tricuspid regurgitation. Unable to estimate the right ventricular systolic pressure. There is no significant pericardial effusion. Measurements Name Value Normal Range RVDdMajor (2D) 3 cm (2.2 - 4.4) RAd ISD 4CH 4.9 cm (3.4 - 4.9) RA (A4C)W 3.2 cm (2.9 - 4.6) IVSd (2D) 0.8 cm (0.6 - 1) LVPWd (2D) 0.8 cm (0.6 - 1) LVIDd (2D) 3.8 cm (3.6 - 5.4) LVIDs (2D) 2.6 cm - LV FS (2D) 32 % (25 - 45) Aortic Annulus 1.8 cm (1.4 - 2.6) Ao root diameter (2D) 2.8 cm (2.1 - 3.5) Ascending Ao 2.5 cm (2.1 - 3.4) LA dimension (AP) 2D 2.7 cm (2.3 - 3.8) LAd ISD 4CH 4.7 cm (2.9 - 5.3) LA ISD 4CH W 3.9 cm (2.5 - 4.5) Name Value Normal Range LA ESV BP (A/L) index 25.6 ml/m2 - Name Value Normal Range MV E-wave Vmax 0.72 m/sec - MV deceleration time 264 msec - MV A-wave Vmax 0.99 m/sec - MV E:A ratio 0.7 ratio - LV septal e' Vmax 0.07 m/sec - LV lateral e' Vmax 0.1 m/sec - LV E:e' septal ratio 10.3 ratio - LV E:e' lateral ratio 7.2 ratio - Name Value Normal Range AV Vmax 1.3 m/sec - AV VTI 27.9 cm - AV peak gradient 6 mmHg - AV mean gradient 4 mmHg - LVOT Vmax 1 m/sec - LVOT VTI 22.8 cm - LVOT peak gradient 4 mmHg - LVOT mean gradient 2 mmHg - SILVANA Vmax 0.72 m/sec - Name Value Normal Range IVC diameter 1.9 cm -
[2017-12-02] MEDS: Apixaban* 5 MG TAB PO SCH (13:18)
[2017-12-02] MEDS: Flecainide TAB* 100 MG PO SCH (13:19)
[2017-12-02] MEDS: Lisinopril TAB* 5 MG PO SCH (13:21)
[2017-12-02] MEDS: Atenolol TAB* 25 MG PO SCH (13:21)
[2017-12-02 13:25] VITALS: BP 143/85
--- NOTE | 2017-12-02 13:29 | RAD ---
Edited for charges. INDICATION: Chest pain, hypertension, family history of heart disease. COMPARISON: No relevant prior exams available on the [facility] PACS for comparison. TECHNIQUE: 10.200 mCi of Tc-99m Myoview were administered IV. SPECT images of the heart were obtained. Later on the same day. Under the direction of Dr. Castro, an exercise stress test was performed. The patient achieved a peak heart rate of 134 bpm, 91 % of the age- predicted maximum. Subsequently, the patient was given an IV injection of 25.800 mCi Tc- 99m Myoview. SPECT images of the heart were obtained and a gated wall motion study was performed. FINDINGS: Gated wall motion images were obtained at stress and demonstrate wall motion to be within normal limits. The calculated left ventricular ejection fraction is 65 % at stress. Estimated LEFT ventricular end diastolic volume is 57 mL. TID 1.05. Based on review of the attenuation corrected and non corrected images the distribution of radiopharmaceutical within the myocardium on the stress and rest images is within normal limits. No fixed or reversible regions of hypoperfusion evident. IMPRESSION: #. No evidence for stress induced myocardial ischemia or presence of an infarct. #. Normal left ventricular wall motion and ejection fraction. ASSESSMENT: Low risk based on nuclear portion. Based on imaging criteria from ACC/AHA 2002 Guideline Update for the Management of Patients With Chronic Stable Angina Table 23. Noninvasive Risk Stratification. MTDD
== END 2017-12-02 14:37 | disposition home or self-care (01) ==
LOC: ED 03:47 → MEDTELE 10:00
PROVIDERS: ADMIT Internal Medicine Geriatric Medicine; ATTEND Internal Medicine Geriatric Medicine
DX: R07.9 Chest pain, unspecified (principal); I10 Essential (primary) hypertension; I48.91 Unspecified atrial fibrillation; N30.10 Interstitial cystitis (chronic) without hematuria; Z87.19 Personal history of other diseases of the digestive system; K21.9 Gastro-esophageal reflux disease without esophagitis
CPT/HCPCS: 36415; 71045; 78452; 80053; 80329; 81003; 81015; 83605; 83735; 83880; 84132; 84484; 85025; 85379; 85610; 85730; 93005; 93017; 93306; 96374; 96375; 99283; A9270-GY; A9502; G0378; G0480; J2405

== ENCOUNTER 2018-10-22 01:04 | Emergency (ER) | payer OTHER ==
--- OUTSIDE RECORDS SUMMARY | 2018-10-22 01:26 | XMS REPORT | Summary of Care ---
:1945 Author Organization [facility] Address [address] [place] [address] Care Team Providers Name Role Phone Chava Linton MD Primary Care Provider Reason for Referral MRI/CAT/PET Scan (Routine) Status Reason Specialty Diagnoses / Referred By Referred To Procedures Contact Contact Authorized Diagnoses RUQ pain Dayan Roa MD [place] Procedures US ABDOMEN COMPLETE [address] [place] [address] [place] [address] Phone: Reason for Visit Reason Comments Abdominal Pain Encounter Details Date Type Department Care Team Description 10/20/2018 Office Visit Dayan Burroughs MD Abnormal weight loss (Primary Dx); Gastroenterology/Hepa [address] [facility] Chronic atrial fibrillation (HCC); [place] [address] RUQ pain [address] [phone] [place] [address] [phone] Allergies Active Allergy Reactions Severity Noted Date Comments Dye Intravenous Radiographic Imaging Other 10/20/2018 Itching Contrast Adrenalin Unknown Reaction 10/21/2017 documented as of this encounter (statuses as of 10/20/2018) Medications Medication Sig Dispensed Refills Start Date End Date Status flecainide (TAMBOCOR) 50 Take 50 mg by 0 Active MG Oral Tab mouth. apixaban (ELIQUIS) 5 MG Take by mouth 0 Active Oral Tab TWICE DAILY. atenolol (TENORMIN) 25 Take 25 mg by 0 Active MG Oral Tab mouth DAILY. lisinopril (PRINIVIL, Take 2.5 mg by 0 Active ZESTRIL) 2.5 MG Oral Tab mouth DAILY. polyethylene glycol & Take 4,000 mL by 2 Each 0 11/21/2017 Active electrolytes (COLYTE, mouth GOLYTELY) 236 g Oral DIRECTED. Recon Soln Omeprazole delayed rel Take 20 mg by 0 Active cap 20 MG Oral CAPSULE mouth DAILY. DELAYED RELEASE AmLODIPine Besylate Take 5 mg by 0 Active (AMLODIPINE PO TAB 0.625 mouth DAILY. MG, 1/4X2.5 MG,, NORVASC,) Omeprazole 40 MG Oral Take 1 Cap by 30 Cap 0 10/20/2018 Active CAPSULE DELAYED RELEASE mouth DAILY. 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 Gastritis and gastroduodenitis 10/21/2017 Hypertensive disorder 10/21/2017 Hypercholesterolemia 10/21/2017 Depressive disorder 10/21/2017 Atrial fibrillation 10/21/2017 Chronic constipation 10/21/2017 Vaginal irritation 10/21/2017 Loss of appetite 10/21/2017 Underweight 10/21/2017 Adequate anticoagulation on anticoagulant therapy 10/21/2017 documented as of this encounter (statuses as of 10/20/2018) Social History Tobacco Use Types Packs/Day Years Used Date Never Smoker Smokeless Tobacco: Never Used Alcohol Use Drinks/Week oz/Week Comments Never Alcohol Habits Answer Date Recorded How often do you have a drink containing alcohol? Never 01/22/2018 How many drinks containing alcohol do you have on a typical Not asked day when you are drinking? How often do you have six or more drinks on one occasion? Not asked Sex Assigned at Date Recorded Not on file Job Start Date Occupation Industry Not on file Not on file Not on file Travel History Travel Start Travel End No recent travel history available. documented as of this encounter Last Filed Vital Signs Vital Sign Reading Time Taken Comments Blood Pressure 158/70 10/20/2018 10:23 AM EDT Pulse 52 10/20/2018 10:23 AM EDT Temperature 36.6 10/20/2018 10:23 AM EDT C (97.9 F) Respiratory Rate - - Oxygen Saturation 99% 10/20/2018 10:23 AM EDT Inhaled Oxygen Concentration - - Weight 52.4 kg (115 lb 9.6 oz) 10/20/2018 10:23 AM EDT Height - - Body Mass Index 20.48 01/22/2018 12:50 PM EST documented in this encounter Patient Instructions Patient InstructionsDayan Roa MD - 10/20/2018 10:20 AM EDT1. bloodwork 2. Schedule ultrasound 3. Double dose of omeprazole 4. email me within 2 weeks: if no improvement let's talk CT/MRI vs EGD Dayan Roa MD documented in this encounter Progress Notes Dayan Roa MD - 10/20/2018 10:20 AM EDT PATIENT: Chanelle Nguyen : 1945 DATE OF SERVICE: 10/20/2018 REFERRING PRACTITIONER: Chava Linton PRIMARY CARE PROVIDER: Chava Linton CHIEF COMPLAINT: Constipation, abd pain Subjective HISTORY OF PRESENT ILLNESS: Chanelle Nguyen is a 73-y.o. female who presents for follow-up. She has PMH significant for Hernandez's esophagus and atrial fibrillation. Last EGD in January of last year showed Hernandez's without dysplasia. She reports that she has had a RUQ to mid-epigastric pain, constant, radiating into her right flank for the past 6 weeks. She thought it might be related to an ulcer, so started taking OTC omeprazole 20 mg, without significant improvement of her symptoms. She reports that the pain is worse aftereating, although does not seem to vary depending on what she eats. She thinks she may have lost a few pounds because of the pain. No associated nausea/vomiting or change in bowel movements. No recent NSAID use (she is on eliquis for a-fib). She denies dysphagia, fatigue, nausea, vomiting, melena, hematemesis, hematochezia, diarrhea, jaundice, fevers, chills, night sweats, weight loss, easy bruising, chest pain, shortness of breath, dysuria, hematuria, pyuria, joint pains, acholic stools, dark urine or systemic pruritis. Current Outpatient Medications Medication Sig AmLODIPine Besylate (AMLODIPINE PO TAB 0.625 MG, 1/4X2.5 MG,, NORVASC,) Take 5 mg by mouth DAILY. apixaban (ELIQUIS) 5 MG Oral Tab Take by mouth TWICE DAILY. atenolol (TENORMIN) 25 MG Oral Tab Take 25 mg by mouth DAILY. flecainide (TAMBOCOR) 50 MG Oral Tab Take 50 mg by mouth. lisinopril (PRINIVIL, ZESTRIL) 2.5 MG Oral Tab Take 2.5 mg by mouth DAILY. Omeprazole delayed rel cap 20 MG Oral CAPSULE DELAYED RELEASE Take 20 mg by mouth DAILY. polyethylene glycol & electrolytes (COLYTE, GOLYTELY) 236 g Oral Recon Soln Take 4,000 mLby mouth DIRECTED. No current facility-administered medications for this visit. Allergies Allergen Reactions Epinephrine [Adrenalin] Unknown Reaction REVIEW OF SYSTEMS: All remaining review of systems was negative except for as noted in the history of present illness/subjective. Objective PHYSICAL EXAMINATION: VITALS: Vitals: 10/20/18 1023 BP: 158/70 Pulse: 52 Temp: 97.9 F (36.6 C) SpO2: 99% GENERAL: alert, oriented, no acute distress. HEENT: No scleral icterus, MMM Psych: Affect normal Neck: no lymphadenopathy LUNGS: clear to auscultation bilaterally. HEART: regular rhythm, no murmurs, no gallops, no rubs. ABDOMEN: general exam: soft, non-tender, non-distended, without masses or organomegaly, normal active bowel sounds, Sethi's sign negative. Extrmities: no edema Skin: clear Neuro: gait normal, a&o x 3 RECTAL: exam deferred. IMPRESSION: Epigastric/RUQ pain, r/o biliary colic vs PUD. Plan PLAN: 1. Lipase, amylase, CMP, celiac panel 2. Ultrasound abdomen 3. Double omeprazole 4. Pending above, consider CT abd/MRI (patient has allergy to contrast dye), and /or EGD Follow up:Pending above results. Author: Dayan Roa MD 10/19/2018 20:03 documented in this encounter Plan of Treatment Date Type Specialty Care Team Description 10/22/2018 Ancillary Procedure Radiology Name Type Priority Associated Diagnoses Date/Time COMPREHENSIVE METABOLIC Lab Routine RUQ pain 10/20/2018 11:24 AM PANEL Abnormal weight loss EDT LIPASE Lab Routine RUQ pain 10/20/2018 11:24 AM Abnormal weight loss EDT AMYLASE Lab Routine RUQ pain 10/20/2018 11:24 AM Abnormal weight loss EDT CELIAC DISEASE PANEL Lab Routine RUQ pain 10/20/2018 11:24 AM Abnormal weight loss EDT CELIAC DISEASE PANEL Lab Routine RUQ pain 10/20/2018 11:24 AM Abnormal weight loss EDT Name Type Priority Associated Diagnoses Order Schedule US ABDOMEN COMPLETE Imaging Routine RUQ pain Expected: 10/20/2018, Expires: 10/20/2019 Health Maintenance Due Date Last Done Comments DEPRESSION SCREENING 1956 HIV SCREENING 1959 LIPID DISORDER SCREENING 1962 HEPATITIS C SCREENING 1984 MAMMOGRAM (SCREENING) 1984 ZOSTER IMMUNIZATION SERIES (1 of 1994 2) FALL RISK ASSESSMENT 2009 OSTEOPOROSIS SCREENING 2009 PNEUMOCOCCAL 65+YRS (1 of 2 - 2009 PCV13) INFLUENZA VACCINE (#1) 2018 EGD (ESOPHAGODUODENOSCOPY) 01/22/2021 01/22/2018 HPV IMMUNIZATION SERIES Aged Out No longer eligible based on patient's age to complete this topic MENINGOCOCCAL VACCINE IMM Aged Out No longer eligible based on patient's age to complete this topic documented as of this encounter Results Not on filedocumented in this encounter Visit Diagnoses Diagnosis Abnormal weight loss - Primary Loss of weight Chronic atrial fibrillation (HCC) Atrial fibrillation RUQ pain Abdominal pain, right upper quadrant documented in this encounter Insurance Payer Benefit Plan / Subscriber ID Effective Dates Phone Address Type Group [employer] [facility] xxxxxxxxxx 2016-Present [employer] documented as of this encounter
--- NOTE | 2018-10-22 04:55 | ED ---
Back Pain - HPI Summary HPI Summary: 73 year old female with a history of high blood pressure began having intense intrascapular back pain around 12am. Pain "moved" to her posterior neck and later down to her lower back. Pain is throbbing and spastic in nature and is a 6 /10. She has never had any pain like this before. Pain is intermittent and nothing makes it better or worse. Since being in the ED, pain has moved to her jaw and face. No SOB, chest pain, heart palpitations or abdominal pain. No fever or recent illnesses. She has not taken anything for her pain. She has a 6 week history of RUQ pain for which she is scheduled to have an U/S of her gallbladder today at 9am. She is not having RUQ pain at this time. - History of Current Complaint Chief Complaint: EDBackInjuryPain Stated Complaint: BACK PAIN/HIGH BP PER PT Time Seen by Provider: 10/22/18 04:21 Hx Obtained From: Patient Onset/Duration: Sudden Onset Onset/Duration: Started Hours Ago - 12am Timing: Intermittent Back Pain Location: Is Discrete @ - began between her shoulders and moved to her neck and lower back. Also pain in jaw and face Severity Initially: Severe - 6/10 Severity Currently: Severe - 6/10 Pain Intensity: 6 Pain Scale Used: 0-10 Numeric Character: Sharp, Spasmodic Aggravating Symptom(s): Nothing Alleviating Symptom(s): Nothing - Risk Factors AAA Risk Factors: Hypertension - Allergies/Home Medications Allergies/Adverse Reactions: Allergies Allergy/AdvReac Type Severity Reaction Status Date / Time diphenhydramine Allergy Intermediate Difficulty Verified 10/22/18 02:38 Breathing epinephrine Allergy Intermediate Palpitation Verified 10/22/18 02:38 s gadoteridol Allergy Mild Itching Verified 10/22/18 02:38 iohexol [From Omnipaque] Allergy Rash And Verified 10/22/18 02:38 Itching Home Medications: Home Medications Omeprazole 20 mg PO DAILY 10/22/18 [History Confirmed 10/22/18] PMH/Surg Hx/FS Hx/Imm Hx Endocrine/Hematology History: Denies: Hx Diabetes Cardiovascular History: Reports: Hx Hypercholesterolemia, Hx Hypertension Denies: Hx Congestive Heart Failure, Hx Myocardial Infarction, Hx Pacemaker/ ICD GI History: Reports: Hx Gastroesophageal Reflux Disease History: Denies: Hx Dialysis, Hx Renal Disease Sensory History: Reports: Hx Contacts or Glasses Denies: Hx Hearing Aid Opthamlomology History: Reports: Hx Contacts or Glasses Neurological History: Reports: Other Neuro Impairments/Disorders - Hx vertigo Psychiatric History: Denies: Hx Panic Disorder - Cancer History Hx Chemotherapy: No Hx Radiation Therapy: No - Surgical History Surgery Procedure, Year, and Place: hysterectomy,Foreign object removed from throat, tonsilectomy Infectious Disease History: No Infectious Disease History: Denies: Hx Clostridium Difficile, Hx Hepatitis, Hx Human Immunodeficiency Virus (HIV), Hx Shingles, Hx Tuberculosis, Hx Known/Suspected VRE, Hx Known/ Suspected VRSA, History Other Infectious Disease, Traveled Outside the [place] in Last 30 Days - Family History Known Family History: Positive: Cardiac Disease, Hypertension, Other - CA Negative: Diabetes - Social History Alcohol Use: Rare Hx Substance Use: No Substance Use Type: Reports: None Hx Tobacco Use: No Smoking Status (MU): Never Smoked Tobacco Review of Systems Constitutional: Negative Negative: Fever, Chills, Fatigue Eyes: Negative ENT: Negative Cardiovascular: Negative Negative: Palpitations Respiratory: Negative Negative: Shortness Of Breath, Cough Gastrointestinal: Negative Negative: Abdominal Pain, Vomiting, Nausea Genitourinary: Negative Positive: no symptoms reported Musculoskeletal: Negative Skin: Negative Neurological: Negative Negative: Headache, Weakness Psychological: Normal All Other Systems Reviewed And Are Negative: Yes Physical Exam Triage Information Reviewed: Yes Vital Signs On Initial Exam: Initial Vitals Temp Pulse Resp BP Pulse Ox 99.1 F 66 18 177/108 99 10/22/18 01:18 10/22/18 01:18 10/22/18 01:18 10/22/18 01:10/22/18 01:18 Vital Signs Reviewed: Yes Appearance: Positive: Well-Appearing Skin: Positive: Warm, Skin Color Reflects Adequate Perfusion, Dry Head/Face: Positive: Normal Head/Face Inspection Eyes: Positive: Normal, EOMI, ERICA, Conjunctiva Clear ENT: Positive: Normal ENT inspection Neck: Positive: Supple, Nontender, No Lymphadenopathy Respiratory/Lung Sounds: Positive: Clear to Auscultation, Breath Sounds Present Cardiovascular: Positive: Normal, RRR, Pulses are Symmetrical in both Upper and Lower Extremities Abdomen Description: Positive: Nontender, Soft Bowel Sounds: Positive: Present Musculoskeletal: Positive: Normal, Strength/ROM Intact Neurological: Positive: Normal, Alert, Oriented to Person Place, Time, CN Intact II-III Psychiatric: Positive: Normal Diagnostics - Vital Signs Vital Signs Temp Pulse Resp BP Pulse Ox 10/22/18 03:04 64 155/90 99 10/22/18 03:00 61 98 10/22/18 02:35 68 195/90 100 10/22/18 02:06 60 98 10/22/18 02:04 61 180/101 97 10/22/18 01:18 99.1 F 66 18 177/108 99 - Laboratory Lab Statement: Any lab studies that have been ordered have been reviewed, and results considered in the medical decision making process. Discharge ED - Discharge Plan Referrals: Chava Linton MD [Primary Care Provider] -
[2018-10-22 05:00] VITALS: BP 155/92
== END 2018-10-22 04:59 | disposition left against medical advice (07) ==
LOC: ED 01:04
DX: Z53.21 Procedure and treatment not carried out due to patient leaving prior to being seen by health care provider (principal)
CPT/HCPCS: 93005; 99282

== ENCOUNTER 2018-10-22 12:00 | Emergency (ER) | payer OTHER ==
--- NOTE | 2018-10-22 15:23 | ED ---
Back Pain - HPI Summary HPI Summary: This patient is a 73 year old F presenting to [facility] with a chief complaint of intermittent unbearable back pain since last night. This back pain began 1 week ago. She never had this back pain before and notes that the pain hamilton. Pt also notes her face is flushed and that this never happens. She also complains of upper ABD pain that began 1 month ago and that worsens with eating. The patient rates the pain 1/10 in severity. Symptoms aggravated by nothing. Symptoms alleviated by nothing. Patient reports fever. Patient denies nausea, vomiting, diarrhea, constipation, dysuria, hematuria, CP, difficulty breathing. Medications reviewed. Allergies noted. PMHx of HTN and a-fib. Pt is on Eloquis blood thinner. Pt does not smoke, drink alcohol, or use drugs. - History of Current Complaint Chief Complaint: EDGeneral Stated Complaint: BACK PAIN AND FEVER PER PT Time Seen by Provider: 10/22/18 15:11 Hx Obtained From: Patient Onset/Duration: Sudden Onset, Lasting Days - 1, Still Present Onset/Duration: Started Weeks Ago - 1, Worse Since - last night Timing: Intermittent Severity Initially: Mild Severity Currently: Mild Pain Intensity: 1 Pain Scale Used: 0-10 Numeric Aggravating Symptom(s): Nothing Alleviating Symptom(s): Other - nothing Associated Signs And Symptoms: Positive: Fever, Abdominal Pain - upper, Other - positive - back pain, face is "flushed." negative - nausea, vomiting, diarrhea, constipation, dysuria, hematuria, CP, difficulty breathing. - Allergies/Home Medications Allergies/Adverse Reactions: Allergies Allergy/AdvReac Type Severity Reaction Status Date / Time diphenhydramine Allergy Intermediate Difficulty Verified 10/22/18 12:10 Breathing epinephrine Allergy Intermediate Palpitation Verified 10/22/18 12:10 s gadoteridol Allergy Mild Itching Verified 10/22/18 12:10 iohexol [From Omnipaque] Allergy Rash And Verified 10/22/18 12:10 Itching Home Medications: Home Medications Lisinopril TAB* [Prinivil TAB*] 5 mg PO DAILY 10/22/18 [History Confirmed ] Omeprazole (Nf) [Prilosec (NF)] 40 mg PO DAILY 10/22/18 [History Confirmed 10/22] PMH/Surg Hx/FS Hx/Imm Hx Previously Healthy: No Endocrine/Hematology History: Denies: Hx Diabetes Cardiovascular History: Reports: Hx Hypercholesterolemia, Hx Hypertension Denies: Hx Congestive Heart Failure, Hx Myocardial Infarction, Hx Pacemaker/ ICD GI History: Reports: Hx Gastroesophageal Reflux Disease History: Denies: Hx Dialysis, Hx Renal Disease Sensory History: Reports: Hx Contacts or Glasses Denies: Hx Hearing Aid Opthamlomology History: Reports: Hx Contacts or Glasses Neurological History: Reports: Other Neuro Impairments/Disorders - Hx vertigo Psychiatric History: Denies: Hx Panic Disorder - Cancer History Hx Chemotherapy: No Hx Radiation Therapy: No - Surgical History Surgical History: Yes Surgery Procedure, Year, and Place: hysterectomy,Foreign object removed from throat, tonsilectomy Infectious Disease History: No Infectious Disease History: Denies: Hx Clostridium Difficile, Hx Hepatitis, Hx Human Immunodeficiency Virus (HIV), Hx Shingles, Hx Tuberculosis, Hx Known/Suspected VRE, Hx Known/ Suspected VRSA, History Other Infectious Disease, Traveled Outside the [place] in Last 30 Days - Family History Known Family History: Positive: Cardiac Disease, Hypertension, Other - CA Negative: Diabetes - Social History Alcohol Use: Rare Hx Substance Use: No Substance Use Type: Reports: None Hx Tobacco Use: No Smoking Status (MU): Never Smoked Tobacco Review of Systems Positive: Fever Negative: Chest Pain Respiratory: Other - negative - difficulty breathing Positive: Abdominal Pain - upper. Negative: Vomiting, Diarrhea, Nausea Genitourinary: Other - negative - constipation Negative: dysuria, hematuria Musculoskeletal: Other - positive - back pain Skin: Other - positive - face is "flushed" Positive: Other All Other Systems Reviewed And Are Negative: Yes Physical Exam - Summary Physical Exam Summary: Constitutional: Well-developed, Well-nourished, Alert. (-) Distressed Skin: Warm, Dry HENT: Normocephalic; Atraumatic Eyes: Conjunctiva normal Neck: Musculoskeletal ROM normal neck. (-) JVD, (-) Stridor, (-) Tracheal deviation Cardio: Rhythm regular, rate normal, Heart sounds normal; Intact distal pulses; The pedal pulses are 2+ and symmetric. Radial pulses are 2+ and symmetric. (-) Murmur Pulmonary/Chest wall: Effort normal. (-) Respiratory distress, (-) Wheezes, (-) Rales Abd: Soft, (-) tenderness, (-) Distension, (-) Guarding, (-) Rebound Musculoskeletal: (-) Edema Lymph: (-) Cervical adenopathy Neuro: Alert, Oriented x3 Psych: Mood and affect Normal Triage Information Reviewed: Yes Vital Signs On Initial Exam: Initial Vitals Temp Pulse Resp BP Pulse Ox 99.4 F 53 14 154/98 99 10/22/18 12:04 10/22/18 12:04 10/22/18 12:04 10/22/18 12:04 10/22/18 12:04 Vital Signs Reviewed: Yes Diagnostics - Vital Signs Vital Signs Temp Pulse Resp BP Pulse Ox 10/22/18 14:58 98.8 F 50 18 122/75 98 10/22/18 12:04 99.4 F 53 14 154/98 99 - Laboratory Result Diagrams: 10/22/18 15:42 10/22/18 15:42 Lab Statement: Any lab studies that have been ordered have been reviewed, and results considered in the medical decision making process. - CT Chest/Abd/Pel CTA CT Interpretation Completed By: Radiologist Summary of CT Findings: IMPRESSION: 1. ECTASIA OF THE ASCENDING THORACIC AORTA , NO EVIDENCE FOR DISSECTION. 2. SMALL LOW SUSPICION RIGHT UPPER LOBE PULMONARY NODULE. IF THE PATIENT HAS RISK FACTORS RECOMMEND A FOLLOW-UP CT OF THE CHEST WITHOUT CONTRAST IN ONE YEARS TIME. 3. CYSTIC PANCREATIC LESIONS. THE SMALLER LESION HAS PROGRESSED SLIGHTLY FROM THE STUDY. FROM 2013. RECOMMEND A FOLLOW-UP MRI OF THE PANCREAS WITHOUT AND WITH CONTRAST IN ONE YEARS TIME. These findings were reviewed by Dr. Cabrera. - EKG 1544 Cardiac Rate: Bradycardia - 48 BPM Summary of EKG Findings: Sinus arrhythmia, 48 BPM, nml intervals, no ST elevations or depressions Re-Evaluation - Re-Evaluation First Eval Re-Evaluation Time: 16:20 Comment: Pt was told of the risks of contrasts given her allergies. Pt is comfortable getting the contrast. Back Pain Course/Dx - Course Course Of Treatment: Patient is here with vague complaints of abdominal pain that radiated into her back and then her upper back. Patient had negative workup for all bladder disease as an outpatient. Patient had no point tenderness on exam is overall well-appearing. Patient had blood or performed which was grossly unremarkable except a mildly elevated lipase. Patient is CTA of her chest/abdomen/pelvis which was unremarkable for dissection or any acute unreality. Patient is made aware of her pancreatic cyst that needs follow-up in 1 year with an MRI. Patient had no emergent condition requiring further testing and was discharged with PCP follow-up. - Diagnoses Provider Diagnoses: Epigastric pain, Back pain - Provider Notifications Discussed Care Of Patient With: Kelby Clark Time Discussed With Above Provider: 16:20 Instructed by Provider To: Other - Dr. Clark approves giving contrast if pt approves of the risks. Discharge ED - Sign-Out/Discharge Documenting (check all that apply): Patient Departure - discharge Patient Received Moderate/Deep Sedation with Procedure: No - Discharge Plan Condition: Stable Disposition: HOME Patient Education Materials: Back Pain (ED), Epigastric Pain (ED) Referrals: Chava iLnton MD [Primary Care Provider] - 2 Days Additional Instructions: In 1 year you need to get an MRI of your pancreas to see if the cyst is changing in size. Follow up with your primary care provider within 1-3 days. Return to the ED for any new or worsening symptoms. - Billing Disposition and Condition Condition: STABLE Disposition: Home - Attestation Statements Document Initiated by Gabby: Yes Documenting Scribe: David Georges Provider For Whom Gabby is Documenting (Include Credential): Dr. Rome Cabrera MD Scribe Attestation: David Eden scribed for Dr. Rome Cabrera MD on 10/22/18 at 1904. Scribe Documentation Reviewed: Yes Provider Attestation: The documentation as recorded by the David prado accurately reflects the service I personally performed and the decisions made by me, Dr. Rome Cabrera MD Status of Scribe Document: Viewed
[2018-10-22 15:52] LABS: ABS Lymphocytes 2.2 10^3/ul (1.0-4.8); ABS Monocytes 0.6 10^3/ul (0-0.8); ABS Neutrophils 5.2 10^3/ul (1.5-7.7); Eosinophil % 0.5 %; Hematocrit 42 % (35-47); Hemoglobin 14.3 g/dL (12.0-16.0); Lymphocyte % 26.6 %; Mean Corpuscular HGB Conc 34 g/dL (31-36); Mean Corpuscular Hemoglobin 33 pg (27-31); Mean Corpuscular Volume 95 fL (80-97); Mean Platelet Volume 8.1 fL (7.4-10.4); Platelet Count 228 10^3/uL (150-450); Red Cell Distribution Width 13 % (10-15); White Blood Count 8.1 10^3/uL (3.5-10.8)
[2018-10-22 16:08] LABS: Albumin 4.8 g/dL (3.2-5.2); BUN/Creatinine Ratio 17.2 (8-20); EGFR Non-African American 63.6 (>60); Globulin 2.4 g/dL (2-4); Potassium 3.6 mmol/L (3.5-5.0); Total Bilirubin 0.9 mg/dL (0.2-1.0); Total Protein 7.2 g/dL (6.4-8.9)
[2018-10-22 16:08] LABS: Urine Appearance Clear; Urine Bacteria Absent (Absent); Urine Bilirubin Negative (Negative); Urine Blood 2+ (Negative); Urine Color Yellow; Urine Glucose Negative (Negative); Urine Ketones Trace (Negative); Urine Nitrite Negative (Negative); Urine Protein Negative (Negative); Urine Red Blood Cell 2+(6-10/hpf) (Absent); Urine Specific Gravity 1.016 (1.010-1.030); Urine Squamous Epithelial Cell Present (Absent); Urine Urobilinogen Negative (Negative); Urine White Blood Cell Trace(0-5/hpf) (Absent)
[2018-10-22] MEDS ORDERED: Iohexol 350* (CONTRAST) 500 ML MDV IV ONE (17:03)
[2018-10-22 17:56] VITALS: BP 150/81
== END 2018-10-22 17:50 | disposition home or self-care (01) ==
LOC: ED 12:00
DX: M54.9 Dorsalgia, unspecified (principal); R10.13 Epigastric pain; I77.810 Thoracic aortic ectasia; K86.9 Disease of pancreas, unspecified; I48.91 Unspecified atrial fibrillation; I10 Essential (primary) hypertension; E78.00 Pure hypercholesterolemia, unspecified; K21.9 Gastro-esophageal reflux disease without esophagitis; Z79.01 Long term (current) use of anticoagulants; Z79.899 Other long term (current) drug therapy; Z88.8 Allergy status to other drugs, medicaments and biological substances; Z91.041 Radiographic dye allergy status
CPT/HCPCS: 36415; 71275; 74174; 80053; 81003; 81015; 83690; 84484; 85025; 87086; 99283; Q9967

== ENCOUNTER 2023-11-25 15:55 | Inpatient (IN) ==
[2023-11-25] MEDS: NS 0.9% 1000 ml BAG 2,000 ML IV ONE (16:32)
[2023-11-25] MEDS: Acetaminophen IV 1 GM/100ML 710 MG/71 ML BAG IV ONE ×2 (16:33→16:54)
[2023-11-25 16:45] LABS: ABS Lymphocytes 0.3 10^3/uL (1.0-4.8); ABS Monocytes 0.3 10^3/uL (0.0-0.9); ABS Neutrophils 4.4 10^3/uL (1.5-7.6); Hematocrit 27.4 % (35-45); Hemoglobin 9.4 g/dL (11.5-14.3); Lymphocyte % 5.7 %; Mean Corpuscular Hgb Conc 34.3 g/dL (31-36); Mean Corpuscular Volume 90.5 fL (80-97); Mean Platelet Volume 8.4 fL (7.5-11.2); Platelet Count 118 10^3/uL (150-450); Red Blood Count 3.03 10^6/uL (3.63-4.92); Red Cell Distribution Width 13.6 % (12-17); White Blood Count 5.1 10^3/uL (3.8-11.8)
[2023-11-25 16:58] LABS: Activated Partial Thrombo Time 35.1 seconds (26.0-38.0); INR 2.21 (0.85-1.14)
[2023-11-25] MEDS: Cefepime 2 GM in Dextrose 2 GM/50 ML BAG IV ONE (17:01)
[2023-11-25 17:06] LABS: High Sens Troponin Baseline 13 pg/mL (<15)
[2023-11-25 17:07] LABS: ALT 52 U/L (7-52); AST 46 U/L (13-39); Albumin/Globulin Ratio 1.5 (1-3); Alkaline Phosphatase 184 U/L (35-149); Anion Gap 10 mmol/L (2-16); Blood Urea Nitrogen 19 mg/dL (6-24); C Reactive Protein 178.39 mg/L (<8.01); CO2 Carbon Dioxide 21 mmol/L (22-32); Calcium 7.7 mg/dL (8.6-10.3); Chloride 99 mmol/L (101-111); Glucose 129 mg/dL (70-100); Potassium 3.2 mmol/L (3.5-5.0); Sodium 130 mmol/L (135-145); Total Bilirubin 1.1 mg/dL (0.2-1.0); eGFR CKD-EPI 74.9 (>60)
[2023-11-25] MEDS: Vancomycin 1,000 MG in NS 0.9% 250 ml 250 ML IVPB ONE (17:52)
[2023-11-25 18:12] LABS: High Sensitivity Troponin 1 Hr 14 pg/mL (<15)
[2023-11-25 18:24] LABS: Urine Appearance Clear; Urine Bilirubin Negative (Negative); Urine Blood 1+ (Negative); Urine Color Yellow; Urine Glucose Negative (Negative); Urine Ketones Negative (Negative); Urine Nitrite Negative (Negative); Urine Protein 2+ (>=100 mg/dL) (Negative); Urine Urobilinogen 4+ (Negative)
[2023-11-25 18:29] LABS: Urine Bacteria Absent /HPF (Absent); Urine Red Blood Cell 2+(6-10/hpf) /HPF (0-Trace); Urine Squamous Epithelial Cell Present /HPF (Absent); Urine White Blood Cell Trace(0-5/hpf) /HPF (0-Trace)
[2023-11-25] MEDS: KCL 20 MEQ/100 ML IVPREMIX 20 MEQ/100 ML BAG IV ONE (19:07)
[2023-11-25] MEDS: Senna TAB 8.6 mg TAB PO SCH (21:15)
[2023-11-25] MEDS: Pantoprazole VIAL 40 MG VIAL IV SCH (21:16)
[2023-11-26] MEDS: SMOG Enema (MgOH-NS-Gly-MinO) 330 ML ENEMA PR ONE (00:24)
[2023-11-26] MEDS: Potassium Chlor 20 meq TAB.ER PO ONE (01:50)
[2023-11-26] MEDS: Ondansetron 4 mg VIAL 2 MG/ML 2 ml VIAL IV PRN (01:50)
[2023-11-26 02:22] LABS: Immature Retic Fraction 0.24
[2023-11-26 02:28] LABS: ABS Lymphocytes 0.7 10^3/uL (1.0-4.8); ABS Monocytes 0.3 10^3/uL (0.0-0.9); Corrected Retic Count 0.6 % (0.5-1.5); Hematocrit 28.7 % (35-45); Hematocrit for Retic CNT 28.7 % (35-45); Hemoglobin 10.2 g/dL (11.5-14.3); Lymphocyte % 11.5 %; Mean Corpuscular Hemoglobin 32.3 pg (27-33); Mean Corpuscular Hgb Conc 35.7 g/dL (31-36); Mean Corpuscular Volume 90.4 fL (80-97); Nucleated Red Blood Cells % 0.1 %/100WBC (0.0-0.8); Platelet Count 135 10^3/uL (150-450); RBC Retic Count 3.18 10^6/ul (3.63-4.92); Red Blood Count 3.18 10^6/uL (3.63-4.92); Red Cell Distribution Width 13.7 % (12-17)
[2023-11-26 03:28] LABS: RBC Parasite Smear No Parasites Seen (No Parasite)
[2023-11-26 03:53] LABS: % Iron Saturation 9 % (15-55); .Transferrin 159 mg/dL (203-362); Iron < 20 ug/dL (50-212); Total Iron Binding Capacity 223 mcg/dL (250-450); Unsaturated Iron Binding 203 ug/dL
[2023-11-26 04:20] LABS: Ferritin 395.3 ng/mL (11-307)
[2023-11-26 04:23] LABS: Folate 11.81 ng/mL (5.90-24.80)
[2023-11-26 04:24] LABS: Vitamin B12 913 pg/mL (180-914)
[2023-11-26 04:27] LABS: Vitamin D Total 25(OH) 10.3 ng/mL (20-50)
[2023-11-26 05:10] LABS: Hematocrit 24.7 % (35-45); Hemoglobin 8.7 g/dL (11.5-14.3); Mean Corpuscular Hemoglobin 32.1 pg (27-33); Mean Corpuscular Hgb Conc 35.5 g/dL (31-36); Mean Corpuscular Volume 90.5 fL (80-97); Mean Platelet Volume 7.8 fL (7.5-11.2); Platelet Count 117 10^3/uL (150-450); Red Blood Count 2.72 10^6/uL (3.63-4.92); Red Cell Distribution Width 13.5 % (12-17); White Blood Count 4.5 10^3/uL (3.8-11.8)
[2023-11-26 05:56] LABS: Albumin 2.7 g/dL (3.2-5.2); Albumin/Globulin Ratio 1.4 (1-3); Calcium 7.8 mg/dL (8.6-10.3); Creatinine, Serum 0.75 mg/dL (0.51-0.95); Globulin 1.9 g/dL (2-4); Potassium 3.5 mmol/L (3.5-5.0); Total Bilirubin 0.9 mg/dL (0.2-1.0); Total Protein 4.6 g/dL (6.4-8.9); eGFR CKD-EPI 80.9 (>60)
[2023-11-26] MEDS: Polyethylene Glycol 3350 17 GM PACKET PO SCH (09:16)
[2023-11-26 14:32] LABS: Magnesium 1.8 mg/dL (1.9-2.7)
[2023-11-26] MEDS: Magnesium Sulfate 2 gm BAG 2 GM/50 ML BAG IVPB ONE (18:16)
[2023-11-27 06:07] LABS: Hemoglobin 9.2 g/dL (11.5-14.3); Mean Corpuscular Hemoglobin 32.1 pg (27-33); Mean Corpuscular Hgb Conc 35.6 g/dL (31-36); Mean Corpuscular Volume 90.4 fL (80-97); Mean Platelet Volume 7.7 fL (7.5-11.2); Platelet Count 137 10^3/uL (150-450); Red Blood Count 2.87 10^6/uL (3.63-4.92); Red Cell Distribution Width 13.9 % (12-17); White Blood Count 3.8 10^3/uL (3.8-11.8)
[2023-11-27 06:25] LABS: Albumin 2.7 g/dL (3.2-5.2); Albumin/Globulin Ratio 1.3 (1-3); Calcium 7.8 mg/dL (8.6-10.3); Creatinine, Serum 0.64 mg/dL (0.51-0.95); Globulin 2.1 g/dL (2-4); Magnesium 2.1 mg/dL (1.9-2.7); Potassium 3.6 mmol/L (3.5-5.0); Total Bilirubin 0.4 mg/dL (0.2-1.0); Total Protein 4.8 g/dL (6.4-8.9); eGFR CKD-EPI 89.8 (>60)
[2023-11-27 08:31] LABS: ABS Lymphocytes 1.4 10^3/uL (1.0-4.8); ABS Monocytes 0.4 10^3/uL (0.0-0.9); Eosinophil % 0.4 %; Large Platelets Present; Lymphocyte % 37.2 %; Nucleated Red Blood Cells % 0.1 %/100WBC (0.0-0.8); RBC Morphology Normal (Normal)
[2023-11-27] MEDS: Polyethylene Glycol 3350 17 GM PACKET PO PRN (15:35)
[2023-11-28 08:25] LABS: Hematocrit 32.3 % (35-45); Hemoglobin 11.1 g/dL (11.5-14.3); Mean Corpuscular Hemoglobin 30.9 pg (27-33); Mean Corpuscular Hgb Conc 34.4 g/dL (31-36); Mean Corpuscular Volume 89.8 fL (80-97); Mean Platelet Volume 7.3 fL (7.5-11.2); Platelet Count 207 10^3/uL (150-450); Red Cell Distribution Width 14.2 % (12-17); White Blood Count 4.7 10^3/uL (3.8-11.8)
[2023-11-28 08:44] LABS: Albumin 3.4 g/dL (3.2-5.2); Albumin/Globulin Ratio 1.4 (1-3); Calcium 8.8 mg/dL (8.6-10.3); Creatinine, Serum 0.66 mg/dL (0.51-0.95); Globulin 2.5 g/dL (2-4); Potassium 3.8 mmol/L (3.5-5.0); Total Bilirubin 0.5 mg/dL (0.2-1.0); Total Protein 5.9 g/dL (6.4-8.9); eGFR CKD-EPI 89.2 (>60)
[2023-11-28 09:52] LABS: ABS Lymphocytes 2.3 10^3/uL (1.0-4.8); ABS Monocytes 0.3 10^3/uL (0.0-0.9); ABS Nucleated RBC 0.01 10^3/ul; Eosinophil % 0.6 %; Lymphocyte % 48.8 %; Nucleated Red Blood Cells % 0.2 %/100WBC (0.0-0.8); Tear Drop Cells 1+
[2023-11-28 14:41] LABS: IgG Immunoblot Negative (Negative); IgM Immunoblot Positive (Negative)
[2023-11-29 00:44] LABS: Anaplasma phagocytophilum Positive (Negative); B. miyamotoi PCR, B Negative (Negative); Babesia divergens/MO-1 Negative (Negative); Babesia ducani Negative (Negative); Ehrlichia chaffeensis Negative (Negative); Ehrlichia ewingii/canis Negative (Negative); Ehrlichia muris eauclairensis Negative (Negative)
[2023-11-29 06:55] LABS: Hematocrit 27.4 % (35-45); Hemoglobin 9.6 g/dL (11.5-14.3); Mean Corpuscular Hemoglobin 31.8 pg (27-33); Mean Corpuscular Hgb Conc 35.2 g/dL (31-36); Mean Corpuscular Volume 90.2 fL (80-97); Mean Platelet Volume 7.4 fL (7.5-11.2); Platelet Count 208 10^3/uL (150-450); Red Blood Count 3.03 10^6/uL (3.63-4.92); Red Cell Distribution Width 14.2 % (12-17); White Blood Count 4.6 10^3/uL (3.8-11.8)
[2023-11-29 07:11] LABS: Albumin 3.1 g/dL (3.2-5.2); Albumin/Globulin Ratio 1.4 (1-3); Calcium 8.5 mg/dL (8.6-10.3); Creatinine, Serum 0.65 mg/dL (0.51-0.95); Globulin 2.2 g/dL (2-4); Magnesium 1.9 mg/dL (1.9-2.7); Potassium 3.8 mmol/L (3.5-5.0); Total Bilirubin 0.4 mg/dL (0.2-1.0); Total Protein 5.3 g/dL (6.4-8.9); eGFR CKD-EPI 89.5 (>60)
[2023-11-29 07:55] LABS: ABS Lymphocytes 2.2 10^3/uL (1.0-4.8); ABS Monocytes 0.4 10^3/uL (0.0-0.9); ABS Neutrophils 1.9 10^3/uL (1.5-7.6); ABS Nucleated RBC 0.01 10^3/ul; Eosinophil % 0.7 %; Lymphocyte % 48.2 %; Nucleated Red Blood Cells % 0.3 %/100WBC (0.0-0.8)
[2023-11-29] MEDS: Potassium Chloride LIQUID 20 MEQ/15 ML LIQUID PO ONE (09:04)
[2023-11-29] MEDS: Magnesium Sulfate 2 gm BAG 2 GM/50 ML BAG IVPB ONE (09:06)
[2023-11-29 14:50] VITALS: BP 131/81
== END 2023-11-29 17:32 | disposition home or self-care (01) | DRG 868 ==
LOC: ED 15:55 → EDHOLD 15:55 → SUATTDRO 19:37 → MEDTELE 22:00
PROVIDERS: ADMIT Internal Medicine; ATTEND Internal Medicine